=== PATIENT | male | born 2000 | race African-American/Black ===

== ENCOUNTER 2019-10-10 17:56 | Emergency (ER) | payer SELFPAY ==
[2019-10-10] MEDS ORDERED: ACETAMINOPHEN 325 MG TABLET PO ONE (18:10)
[2019-10-10 19:00] LABS: A TYPE INFLUENZA AG NEGATIVE (NEGATIVE); B INFLUENZA AG NEGATIVE (NEGATIVE)
[2019-10-10] MEDS ORDERED: NORMAL SALINE 1000 ML 1,000 ML IV ONE (20:32)
--- NOTE | 2019-10-10 20:40 | ER Document Report ---
ED Fever - General Chief Complaint: Fever Stated Complaint: FEVER Time Seen by Provider: 10/10/19 20:05 Notes: Patient is a 19-year-old male that comes emergency department for chief complaint of fevers for the past 2 days. Patient also states that he has had a vague sore throat, occasional mild cough, and some chills. He states that after he was given Tylenol upon arrival symptoms are gone and he feels much better. Patient denies shortness of breath, chest pain, headache, vomiting, abdominal pain. Patient denies any recent travel or obvious sick contacts. Patient also notes that he was eating [place] [employer] earlier today and "they did not even taste spicy, they did not taste right". He denies change in smell. He denies any daily medications, denies smoking, alcohol, recreational drugs. - Related Data Allergies/Adverse Reactions: No Known Allergies Allergy (Unverified 10/10/19 18:11) Past Medical History - General Information source: Patient - Social History Smoking Status: Never Smoker Drug Abuse: None Lives with: Family Family History: Reviewed & Not Pertinent Patient has homicidal ideation: No - Medical History Medical History: Negative - Immunizations Hx Diphtheria, Pertussis, Tetanus Vaccination: Yes Review of Systems - Review of Systems Constitutional: See HPI EENT: See HPI Cardiovascular: No symptoms reported Respiratory: See HPI Gastrointestinal: No symptoms reported Genitourinary: No symptoms reported Male Genitourinary: No symptoms reported Musculoskeletal: No symptoms reported Skin: No symptoms reported Hematologic/Lymphatic: No symptoms reported Neurological/Psychological: No symptoms reported Physical Exam - Vital signs Vitals: Temp Pulse Resp BP Pulse Ox 103.0 F H 119 H 18 135/81 H 97 10/10/19 18:04 10/10/19 18:04 10/10/19 18:04 10/10/19 18:04 10/10/19 18:04 - Notes Notes: GENERAL: Alert, interactive, does not appear to be in distress HEAD: Normocephalic, atraumatic. EYES: Pupils equal, round, and reactive to light. Extraocular movements intact. ENT: Oral mucosa dry, tongue midline. Oropharynx has mild erythema, no noted tonsillitis, uvula normal. Airway patent. Nares patent, sinuses non-tender, ear canals unremarkable, TM's intact. NECK: Full range of motion. Supple. Trachea midline. No lymphadenopathy. LUNGS: Clear to auscultation bilaterally, no wheezes, rales, or rhonchi. No respiratory distress. Non-tender chest wall. HEART: Significantly tachycardic, normal rhythm, no murmur noted ABDOMEN: Soft, non-tender. Non-distended. EXTREMITIES: Moves all 4 extremities spontaneously. No edema, normal radial and dorsalis pedis pulses bilaterally. No cyanosis. BACK: no cervical, thoracic, lumbar midline tenderness. No saddle anesthesia, normal distal neurovascular exam. Moves all extremities in full range of motion. NEUROLOGICAL: Alert and oriented x3. Normal speech. Cranial nerves II through XII grossly intact. Strength 5/5 in all extremities. PSYCH: Normal affect, normal mood. SKIN: Warm, dry, normal turgor. No rashes or lesions noted. Course - Re-evaluation Re-evalutation: Strep and influenza swabs on arrival are negative. Patient is tachycardic on exam, has mild erythema the posterior pharynx, otherwise he is quite well- appearing. No nuchal rigidity, clear lungs, soft abdomen. However because of patient's significant fever, persistent tachycardia, and overall symptoms concerning for coronavirus I highly recommended that patient allow us to perform blood, blood cultures, chest x-ray to rule out pneumonia. Patient declines, he states he would like to be discharged. I explained that I have a strong suspic ion of the coronavirus because of his symptoms and presentation, that patient will need to be quarantined for 2 weeks especially if we do not test him, that he is potentially contagious, and that he is potentially unstable because of his tachycardia even after treatment of fever. Explained he could have bad pneumonia that requires treatment. Patient states understanding of this, however after I gave him a. To think about this, he called me back into the room and states that he will be signing out AGAINST MEDICAL ADVICE and he declines any additional treatment. I discussed this with him again but patient cannot be dissuaded. Patient is alert, oriented, appears to have the capacity to make the decision. I discussed the details and dangers of this, recommend return, recommended avoiding exposing people. Patient states understanding. - Vital Signs Vital signs: Temp Pulse Resp BP Pulse Ox 99.7 F 120 H 18 134/79 H 97 10/10/19 20:24 10/10/19 20:22 10/10/19 20:22 10/10/19 20:22 10/10/19 20:22 Discharge - Discharge Clinical Impression: Tachycardia, Hypogeusia Fever Qualifiers: Fever type: unspecified Qualified Code(s): R50.9 - Fever, unspecified Pharyngitis Qualifiers: Pharyngitis/tonsillitis etiology: unspecified etiology Qualified Code(s): J02.9 - Acute pharyngitis, unspecified Disposition: AGAINST MEDICAL ADVICE Additional Instructions: Your strep and influenza test were negative, unfortunately you have not completed the coronavirus testing and you have declined the additional recommended management at this time, you are signing out AGAINST MEDICAL ADVICE. There is a possibility that you are very ill and even dangerously ill. The recommendation is to return or follow-up to seek treatment as soon as possible. If you do not seek treatment you are requested to at least quarantine for 2 weeks, keep a log of visitors to your home and notify any visitors to your home of your isolation status. Forms: Return to Work
[2019-10-10 20:54] VITALS: BP 134/79
== END 2019-10-10 20:46 | disposition left against medical advice (07) ==
LOC: ER 17:56
DX: R05 Cough (principal); R50.9 Fever, unspecified; J02.9 Acute pharyngitis, unspecified; R00.0 Tachycardia, unspecified; R43.9 Unspecified disturbances of smell and taste
CPT/HCPCS: 87070; 87804; 87880; 99283